=== PATIENT | female | born 1980 | race Caucasian/White ===

== ENCOUNTER → 2021-07-09 13:05 | Outpatient (CLI) | payer BC, SELFPAY ==
--- NOTE | ~2021-07-09 | US_ITS ---
EXAMINATION: US soft tissue head and neck DATE: 07/09/2021 14:15 INDICATION: Dysphagia. TECHNIQUE: Multiple ultrasound images of the thyroid were obtained. COMPARISON: None. FINDINGS: The right thyroid lobe measures 4.4 x 1.6 x 1.5 cm. The left thyroid lobe measures 4.5 x 1.3 x 1.5 c m. In the left thyroid lobe, there is a 3 mm nodule. In the right thyroid lobe, there is a 7 mm ravindra d, hypoechoic, [id number] nodule with ill-defined margin without echogenic foci (TI-RADS TR4). I n the right thyroid lobe, there is a 19 mm predominantly solid, hypoechoic, crywp-aqyg-gjpi nodule wi th ill-defined margin without echogenic foci (TR4). IMPRESSION: 1. Multinodular goiter. Ultrasound-guided fine-needle aspiration of the 19 mm right thyroid nodule is recommended. Reviewed, dictated and finalized at location B. IMPRESSION: 1. Multinodular goiter. Ultrasound-guided fine-needle aspiration of the 19 mm r ight thyroid nodule is recommended.
== END ==
PROVIDERS: PCP Physician Assistant; Visit Provider Physician Assistant
DX: E04.2 Nontoxic multinodular goiter (principal); R13.10 Dysphagia, unspecified
CPT/HCPCS: 76536

== ENCOUNTER → 2021-09-03 12:25 | Outpatient (CLI) | payer BC, SELFPAY ==
--- NOTE | ~2021-09-03 | MM_ITS ---
EXAMINATION: MM screening michael BI w [facility] HISTORY: Screening mammogram TECHNIQUE: Craniocaudal and mediolateral oblique 3-D tomosynthesis images were obtained and synthetic 2-D images were generated. CAD analysis was submitted and interpreted. COMPARISON: None, baseline BREAST PARENCHYMAL COMPOSITION: There are scattered areas of fibroglandular density. FINDINGS: There is no suspicious mass, calcification, or architectural distortion to suggest malignan cy in either breast. IMPRESSION: 1. No mammographic evidence of malignancy. 2. Recommend routine screening mammography in one year. BI-RADS Category 1: Negative Reviewed, dictated and finalized at location A.
== END ==
PROVIDERS: PCP Physician Assistant; Visit Provider Physician Assistant
DX: Z12.31 Encounter for screening mammogram for malignant neoplasm of breast (principal)
CPT/HCPCS: 77063; 77067